=== PATIENT | male | born 1990 | race Caucasian/White ===

== ENCOUNTER 2021-07-26 10:32 | Observation (INO) | payer OTHER ==
[2021-07-26] MEDS ORDERED: SODIUM CHLORIDE 0.9% 1,000 ML IV STA (10:44)
[2021-07-26] MEDS ORDERED: ONDANSETRON 4 MG/2 ML VIAL IVP STA ×2 (10:45→13:16)
[2021-07-26 11:26] LABS: Potassium 3.9 mmol/L (3.5-5.1)
[2021-07-26 11:27] LABS: ALT 16 U/L (4-49); AST 30 U/L (17-59); African American GFR (CKD) >90 (>60 ml/min/1.73 sqM); Albumin 4.5 g/dL (3.5-5.0); Alcohol <10 mg/dL; Alkaline Phosphatase 156 U/L (38-126); Anion Gap 13 mmol/L; Blood Urea Nitrogen 12 mg/dL (9-20); Calcium 9.8 mg/dL (8.4-10.2); Carbon Dioxide 21 mmol/L (22-30); Chloride 105 mmol/L (98-107); Glucose 205 mg/dL (74-99); Magnesium 2.8 mg/dL (1.6-2.3); Non-African American GFR(CKD) >90 (>60 ml/min/1.73 sqM); Sodium 139 mmol/L (137-145); Total Bilirubin 0.3 mg/dL (0.2-1.3); Total Protein 7.6 g/dL (6.3-8.2)
[2021-07-26 11:35] LABS: Basophils % (A) 0 %; Eosinophils % (A) 0 %; HCT 39.3 % (39.0-53.0); HGB 13.3 gm/dL (13.0-17.5); Lymphocytes # (A) 0.8 k/uL (1.0-4.8); Lymphocytes % (A) 7 %; MCH 29.7 pg (25.0-35.0); MCHC 33.8 g/dL (31.0-37.0); MCV 87.8 fL (80.0-100.0); Mean Platelet Volume 6.9; Monocytes # (A) 0.4 k/uL (0-1.0); Monocytes % (A) 3 %; Neutrophils # (A) 9.9 k/uL (1.3-7.7); Neutrophils % (A) 88 %; Platelet Count 337 k/uL (150-450); RBC 4.48 m/uL (4.30-5.90); RDW 13.2 % (11.5-15.5); WBC 11.2 k/uL (3.8-10.6)
[2021-07-26 11:48] LABS: Amorphous Sediment,Urine Rare /hpf; Appearance,Urine Cloudy (Clear); Bilirubin,Urine Negative (Negative); Blood,Urine Negative (Negative); Glucose,Urine (UA) Trace (Negative); Ketones,Urine 1+ (Negative); Leukocyte Esterase,Urine Negative (Negative); Mucus,Urine Many /hpf; Nitrite,Urine Negative (Negative); Protein,Urine 2+ (Negative); RBC,Urine 15 /hpf (0-5); Urobilinogen,Urine <2.0 mg/dL (<2.0); WBC,Urine 5 /hpf (0-5)
[2021-07-26 11:52] LABS: Color,Urine Yellow
[2021-07-26 12:10] LABS: Cocaine Screen,Urine Detected (NotDetected); Opiate Screen,Urine Detected (NotDetected); Phencyclidine Screen,Urine Not Detected (NotDetected); Urn Cannabinoid Scrn Detected (NotDetected)
[2021-07-26 12:11] LABS: Amphetamine Screen,Urine Not Detected (NotDetected); Barbiturate Screen,Urine Not Detected (NotDetected); Benzodiazepines Screen,Urine Not Detected (NotDetected); Methadone Screen, Urine Detected (NotDetected); Oxycodone Screen, Urine Not Detected (NotDetected); Tricyclic Antidepressant,Urine Not Detected (NotDetected)
--- NOTE | 2021-07-26 12:22 | ED ---
Seizure HPI - General Chief Complaint: Seizure Stated Complaint: Seizure Time Seen by Provider: 07/26/21 10:34 Source: patient, EMS Mode of arrival: EMS Limitations: no limitations - History of Present Illness Initial Comments: Patient is a 31-year-old male, with history of polysubstance abuse, presenting to the emergency department via EMS from [facility] after having a witnessed 6 minute long seizure. He does admit to having history of seizures in the past from detoxing off of alcohol and other drugs. He presented to [facility] last night. Patient is currently alert and oriented 4, he does have a little bit of confusion was certain questions. He admits to feeling a little nauseous, generalized body pains but no specific area of pain. He denies any chest pain or shortness of breath, no abdominal pain. He states he takes methadone, he was given a dose early this morning. According to his med list from [facility], he is on Bactrim and Keflex, he does not know why. Patient denies any recent fevers or chills, no diarrhea or dysuria. He has no further complaints. His vital signs are stable upon arrival. - Related Data Home Medications Medication Instructions Recorded Confirmed Cephalexin [Keflex] 500 mg PO Q6H 07/26/21 07/26/21 Methadone [Dolophine] 30 mg PO DAILY 07/26/21 07/26/21 Sulfamethoxazole/Trimethoprim 1 tab PO BID 07/26/21 07/26/21 [Bactrim DS 800-160 mg] Allergies Allergy/AdvReac Type Severity Reaction Status Date / Time No Known Allergies Allergy Verified 07/26/21 11:13 Review of Systems ROS Statement: Those systems with pertinent positive or pertinent negative responses have been documented in the HPI. ROS Other: All systems not noted in ROS Statement are negative. General Exam - General Exam Comments Initial Comments: GENERAL: Patient is well-developed and well-nourished. Patient is nontoxic and in no acute distress, diaphoretic. HEAD: Atraumatic, normocephalic. No hematomas. EYES: Pupils equal round and reactive to light, extraocular movements intact, sclera anicteric, conjunctiva are normal. Eyelids were unremarkable. ENT: TMs normal, nares patent, oropharynx clear without exudates. Moist mucous membranes. NECK: Normal range of motion, supple without lymphadenopathy or JVD. He has no midline tenderness. LUNGS: Unlabored respirations. Breath sounds clear to auscultation bilaterally and equal. No wheezes rales or rhonchi. HEART: Regular rate and rhythm without murmurs, rubs or gallops. ABDOMEN: Soft, nontender, normoactive bowel sounds. No guarding, no rebound. No masses appreciated. : Deferred MUSCULOSKELETAL: Normal extremities with adequate strength and normal range of motion, no pitting or edema. No clubbing or cyanosis. NEUROLOGICAL: Patient is alert and oriented x 3. Motor and sensory are also intact. Cranial nerves II through XII grossly intact. Symmetrical smile. Normal speech, normal gait. PSYCH: Normal mood, normal affect. SKIN: Warm, Dry, normal turgor, no rashes or lesions noted. Limitations: no limitations Course Vital Signs 07/26/21 07/26/21 10:35 14:00 Temperature 99.2 F Pulse Rate 99 89 Respiratory 18 18 Rate Blood Pressure 119/61 129/76 O2 Sat by Pulse 100 100 Oximetry Medical Decision Making - Medical Decision Making Patient is a 31-year-old male with history of polysubstance abuse, presenting via EMS from [facility] after having a witnessed 6 minute long seizure. He has been at [facility] since last night, there for rehab from cocaine, fentanyl, methadone. He denies any alcohol use. He has had seizures in the past from detoxing. He is complaining of generalized body aches, some mild nausea but no further complaints today. His vitals are stable. He is in no acute distress, he is A& O4, occasional confusion however answering some questions, or takes awhile to understand the question. His labs showing a stable white count, glucose is 205 and mag is slightly high at 2.8. Urine shows 1+ ketones, 15 RBCs, and urine tox is positive for opiates, methadone, cocaine and marijuana. Alcohol is normal. Patient will be admitted for observation and neurology consult. Dr. Wang is accepting. Case discussed with Dr. Rock. - Lab Data Result diagrams: 07/26/21 11:05 07/26/21 10:52 Lab Results 07/26/21 07/26/21 07/26/21 Range/Units 10:52 11:05 11:05 WBC 11.2 H (3.8-10.6) k/uL RBC 4.48 (4.30-5.90) m/uL Hgb 13.3 (13.0-17.5) gm/dL Hct 39.3 (39.0-53.0) % MCV 87.8 (80.0-100.0) fL MCH 29.7 (25.0-35.0) pg MCHC 33.8 (31.0-37.0) g/dL RDW 13.2 (11.5-15.5) % Plt Count 337 (150-450) k/uL MPV 6.9 Neutrophils % 88 % Lymphocytes % 7 % Monocytes % 3 % Eosinophils % 0 % Basophils % 0 % Neutrophils # 9.9 H (1.3-7.7) k/uL Lymphocytes # 0.8 L (1.0-4.8) k/uL Monocytes # 0.4 (0-1.0) k/uL Eosinophils # 0.0 (0-0.7) k/uL Basophils # 0.0 (0-0.2) k/uL Sodium 139 (137-145) mmol/L Potassium 3.9 (3.5-5.1) mmol/L Chloride 105 (98-107) mmol/L Carbon Dioxide 21 L (22-30) mmol/L Anion Gap 13 mmol/L BUN 12 (9-20) mg/dL Creatinine 0.71 (0.66-1.25) mg/dL Est GFR (CKD-EPI)AfAm >90 (>60 ml/min/1.73 sqM) Est GFR (CKD-EPI)NonAf >90 (>60 ml/min/1.73 sqM) Glucose 205 H (74-99) mg/dL Calcium 9.8 (8.4-10.2) mg/dL Magnesium 2.8 H (1.6-2.3) mg/dL Total Bilirubin 0.3 (0.2-1.3) mg/dL AST 30 (17-59) U/L ALT 16 (4-49) U/L Alkaline Phosphatase 156 H (38-126) U/L Total Protein 7.6 (6.3-8.2) g/dL Albumin 4.5 (3.5-5.0) g/dL Urine Color Yellow Urine Appearance Cloudy (Clear) Urine pH 6.0 (5.0-8.0) Ur Specific [place] 1.030 (1.001-1.035) Urine Protein 2+ H (Negative) Urine Glucose (UA) Trace H (Negative) Urine Ketones 1+ H (Negative) Urine Blood Negative (Negative) Urine Nitrite Negative (Negative) Urine Bilirubin Negative (Negative) Urine Urobilinogen <2.0 (<2.0) mg/dL Ur Leukocyte Esterase Negative (Negative) Urine RBC 15 H (0-5) /hpf Urine WBC 5 (0-5) /hpf Amorphous Sediment Rare H (None) /hpf Urine Mucus Many H (None) /hpf Urine Opiates Screen Detected H (NotDetected) Ur Oxycodone Screen Not Detected (NotDetected) Urine Methadone Screen Detected H (NotDetected) Ur Propoxyphene Screen Not Detected (NotDetected) Ur Barbiturates Screen Not Detected (NotDetected) U Tricyclic Antidepress Not Detected (NotDetected) Ur Phencyclidine Scrn Not Detected (NotDetected) Ur Amphetamines Screen Not Detected (NotDetected) U Methamphetamines Scrn Not Detected (NotDetected) U Benzodiazepines Scrn Not Detected (NotDetected) Urine Cocaine Screen Detected H (NotDetected) U Marijuana (THC) Screen Detected H (NotDetected) Serum Alcohol <10 mg/dL - EKG Data EKG Comments: Normal sinus rhythm, normal ECG, no signs of acute process. Ventricular rate 94, VA interval 154, QT 360. Disposition Clinical Impression: Generalized seizure, Polysubstance abuse Disposition: ADMITTED IP TO THIS [facility] Condition: Stable Decision Date: 07/26/21 Decision Time: 13:53
[2021-07-26] MEDS ORDERED: ONDANSETRON 4 MG/2 ML VIAL IVP PRN (13:50)
[2021-07-26] MEDS ORDERED: NALOXONE 0.4 MG/ML 1 ML VIAL IV PRN (13:50)
[2021-07-26] MEDS ORDERED: IBUPROFEN 400 MG TAB PO PRN (13:50)
[2021-07-26] MEDS ORDERED: LORazepam 2 MG/ML INJ IV PRN ×2 (13:52→16:06)
[2021-07-26] MEDS: SODIUM CHLORIDE 0.9% 1,000 ML IV SCH ×2 (13:59→20:48)
[2021-07-26] MEDS: ACETAMINOPHEN TAB 325 MG TAB PO PRN (14:03)
--- NOTE | 2021-07-26 15:34 | P.CNNES ---
History of Present Illness Consult date: 07/26/21 Requesting physician: Lisa Barragan Reason for Consult: seizure, polysubstance abuse History of Present Illness: This is a 31-year-old gentleman with history of polysubstance use, previous episode of seizure due to detoxification who presented to the emergency department via EMS on 07/26/2021 from [facility] after witnessed 6 minute episode of seizure. Patient was at [facility] since last night for his histor y of polysubstance use and he is detoxing. Some of the history is obtained from medical records since patient was not a great historian. Patient did state that he uses cocaine and IV heroin use. He stated he has history of alcohol use and initially stated last drink was today than he said it was 3 days ago then later it was 3 month ago and was not consistent with answer. He states that he smokes 1 pack per day. He denies of headaches. He did acknowledge that he had history of seizure in the past due to detoxification from alcohol withdrawl and polysubstance use. Patient is getting methadone the rehab center. Per the ED note the patient the was a little bit confused to certain questions but he was alert oriented 4 per the ED, he was low but nauseous and generalized body pain. Workup in the hospital consisted of: Initial vital signs: Blood pressure of 119/61, heart rate of 99, respiratory of 18, temperature of 99.2 Fahrenheit oral and pulse ox 100% at room air. CBC with differential is white blood cell is just minimally elevated of 11.2K as seems reactive. Otherwise rest of CBC with differential is unremarkable. Chemistry panel is initial serum glucose 205 which is slightly elevated, magnesium is 2.8 is mildly elevated. Otherwise the rest of the chemistry panel is unremarkable. The calcium is 9.8, AST of 30 and ALT of 16. Sodium is 135, creatinine is 0.71 which is within normal limits. Urine drug screen is positive for cocaine, marijuana, methadone, opiates. Serum alcohol level is less than 10. Review of Systems Review of system: Is limited but the penitent positive and negative per HPI. Medications and Allergies Home Medications Medication Instructions Recorded Confirmed Type Cephalexin [Keflex] 500 mg PO Q6H 07/26/21 07/26/21 History Methadone [Dolophine] 30 mg PO DAILY 07/26/21 07/26/21 History Sulfamethoxazole/Trimethoprim 1 tab PO BID 07/26/21 07/26/21 History [Bactrim DS 800-160 mg] Allergies Allergy/AdvReac Type Severity Reaction Status Date / Time No Known Allergies Allergy Verified 07/26/21 11:13 Physical Examination - Vital Signs Vital Signs: Vital Signs Temp Pulse Resp BP Pulse Ox 07/26/21 14:00 89 18 129/76 100 07/26/21 10:35 99.2 F 99 18 119/61 100 Intake and Output 07/25/21 07/26/21 07/26/21 22:59 06:59 14:59 Other: Weight 81.647 kg GENERAL: The patient is lying in bed and is not in acute distress but seems somewhat restless. CHEST: The heart rate is regular rate rhythm. No murmurs to auscultation. No carotid bruit bilaterally. LUNG: Clear to auscultation bilaterally no wheezing noted throughout. Not labored breathing. ABDOMEN/GI: Bowel sounds present in all 4 quadrants. No tenderness to palpation throughout. INTEGUMENTARY: Has needle tulio noted in upper extremities. NEUROLOGICAL: Higher mental function: The patient is awake, seems somewhat restless. Is oriented to self. Upon asking the year he got it right by the second time and got the month correct as well. He was able to state the month but on second and third try but on first try he could not. He was able to state he was in the hospital with options. Initially he stated he was at [facility]. He is able to name objects (watch, glasses and pen). He is able to name current state we are in, [facility] and the current [place]. president. Patient is following commands. No aphasia and no neglect. Cranial nerves: The pupils are round, equal and reactive to light. Visual zaragoza are full to confrontation throughout. Extraocular movement is intact no nystagmus is noted. Facial sensation is normal to touch throughout. The facial strength is normal throughout. Hearing is normal bilaterally to hand rub. Tongue is midline and moved [id number] without any difficulty. No dysarthria is noted. Shoulder shrug is normal bilaterally. Motor: Gait is deferred. The strength is 5 over 5 throughout. Normal tone and bulk. Cerebellum: Normal finger to nose heel to joe bilaterally. Sensation: Sensation is normal to touch throughout. Reflexes (right/left): 2+ throughout. Plantars are downgoing bilaterally. Results - Laboratory Findings CBC and BMP: 07/26/21 11:05 07/26/21 10:52 Abnormal Lab Findings: Abnormal Labs 07/26/21 07/26/21 07/26/21 10:52 11:05 11:05 WBC 11.2 H Neutrophils # 9.9 H Lymphocytes # 0.8 L Carbon Dioxide 21 L Glucose 205 H Magnesium 2.8 H Alkaline Phosphatase 156 H Urine Protein 2+ H Urine Glucose (UA) Trace H Urine Ketones 1+ H Urine RBC 15 H Amorphous Sediment Rare H Urine Mucus Many H Urine Opiates Screen Detected H Urine Methadone Screen Detected H Urine Cocaine Screen Detected H U Marijuana (THC) Screen Detected H Assessment and Plan Assessment: Provoke seizure due to withdraw from detoxification from his polysubstance use (opiates, cocaine). Unsure when exactly his last alcohol drink (he was inconsistent with answer and alcohol level <10). Encephalopathy due to above. History of seizure from alcohol withdrawal as well as polysubstance use Polysubstance use (cocaine, marijuana, IV heroin) History of alcohol use Nicotine use Plan: I ordered CT head w/o. If patient continues to be altered will get a routine EEG. Will off on any antiepileptic drug for now since this is provoked seizure. I started the patient on thiamine 100 mg IV daily for now. Ordered Vitamin B12, folate levels. Q4 neuro-checks. Ordered Seizure precaution and pad Recommend CIWA protocol since unsure exactly when last alcohol use (patient is inconsistent with history) and will defer management to the primary team. Patient was counseled on polysubstance use and tobacco cessation. Will defer the rest of medical management to the primary team. The plan is discussed with the patient's nurse. Thank you for the consultation. Galdino Mccollum MD Neuro-Hospitalist Time with Patient: Greater than 30
--- NOTE | 2021-07-26 15:48 | CT ---
EXAMINATION TYPE: CT brain wo con DATE OF EXAM: 07/26/2021 COMPARISON: None INDICATION: Patient poor historian. DLP: 1142.4 mGycm, Automated exposure control for dose reduction was used. CONTRAST: None CT of the brain is performed utilizing 3 mm thick sections through the posterior fossa and 3 mm thick sections through the remaining calvarium. Study is performed within 24 hours of arrival to the hosp ital. No abnormal hyperdensity is present to suggest an acute intracranial hemorrhage. No mass lesion is evident. No acute infarcts are evident. Ventricles and sulci are appropriate for the patient age. Paranasal sinuses and mastoid air cells within the [id number] are clear. IMPRESSIONS: 1. No acute intracranial process.
--- NOTE | 2021-07-26 19:08 | XR ---
EXAMINATION TYPE: XR chest 1V portable DATE OF EXAM: 07/26/2021 COMPARISON: NONE HISTORY: Short of breath TECHNIQUE: Single view FINDINGS: Heart is normal. Lungs are clear of infiltrate. There is no heart failure. There are no hil ar masses. There are chest leads. Bony thorax is intact. IMPRESSION: No active cardiopulmonary disease. Normal heart.
[2021-07-26] MEDS: LORazepam 2 MG/ML INJ IV PRN (20:58)
[2021-07-26] MEDS: THIAMINE 100 MG/ML 2 ML VIAL IVP SCH (20:59)
--- NOTE | 2021-07-26 21:09 | HP ---
HISTORY AND PHYSICAL DATE OF SERVICE: 07/26/2021 CHIEF COMPLAINT: Seizure disorder. HISTORY OF PRESENT ILLNESS: This 31-year-old gentleman with a past medical history of multiple medical problems, including polysubstance abuse, being followed by no physician in the outpatient setting, was living in the [place] area. The patient had a history of heroin abuse and the patient was on methadone. The patient wanted to increase more of methadone. The patient was admitted to [facility] for rehab for detox last night. The patient apparently had a witnessed [id number] seizure in [facility] and the patient was taken to [facility] and admitted for further evaluation and treatment. The patient is mildly confused; otherwise able to give a sketchy history at this time. The patient is complaining of some generalized body pains. Initial evaluation, including CT scan of the brain, did not show any acute abnormality. A neurology evaluation is in progress. There is no history of any fever, rigor or chills at this time. PAST MEDICAL HISTORY: History of polysubstance abuse. MEDICATIONS PRIOR TO ADMISSION: Home medications are methadone, Bactrim and Keflex. ALLERGIES: NONE. FAMILY HISTORY: No history of heart disease or strokes in the family. SOCIAL HISTORY: History of polysubstance abuse. REVIEW OF SYSTEMS: ENT: As mentioned earlier. CARDIOVASCULAR SYSTEM: No angina, palpitations. RESPIRATORY SYSTEM: No cough, hemoptysis. GI: As mentioned earlier. : No dysuria. NERVOUS SYSTEM: As mentioned earlier. ALLERGY/IMMUNOLOGY: No asthma or hay fever. MUSCULOSKELETAL: As mentioned earlier. HEMATOLOGY/ONCOLOGY: No history of anemia. ENDOCRINE: No history of diabetes, hypothyroidism. CONSTITUTIONAL: As mentioned earlier. DERMATOLOGY: Negative. RHEUMATOLOGY: Negative. PSYCHIATRY: As mentioned earlier. PHYSICAL EXAMINATION: Patient alert and oriented x3. Pulse is 99, blood pressure 119/61, respiration 18, temperature 99.2, pulse ox 100% on room air. HEENT: Conjunctivae normal. Oral mucosa moist. NECK: No jugular venous distention. No carotid bruit. No lymph node enlargement. CARDIOVASCULAR: S1, S2 muffled. RESPIRATION: Breath sounds diminished at the bases. No rhonchi. No crackles. ABDOMEN: Soft, nontender. No mass palpable. LEGS: No edema. No swelling. NERVOUS SYSTEM: Higher functions as mentioned earlier. Moves all 4 limbs. No focal motor or sensory deficit. LYMPHATICS: No lymph node palpable in neck, axillae or groin. SKIN: No ulcer, rash, bleeding. JOINTS: No active deforming arthropathy. LAB STUDIES: WBC 11.2, hemoglobin 13.3, glucose 205, magnesium 2.8. UA noted; 15 RBCs. Drug screen is positive for opiates, methadone, cocaine and marijuana. ASSESSMENT: 1. Acute seizure disorder, possibly from withdrawal of multiple drugs. 2. Polysubstance abuse. 3. Increased white count. 4. Change in mental status, acute toxic encephalopathy. 5. Elevated random glucose. 6. Possible history of EtOH. 7. FULL CODE. RECOMMENDATIONS AND DISCUSSION: In this 31-year-old gentleman who presented with multiple complex medical issues, we will monitor the patient closely, continue the current medications, continue symptomatic treatment. Use Ativan on a p.r.n. basis. There is no clear-cut history of alcohol, but alcohol withdrawal seizure is a possibility. Will supplement vitamins. Closely follow with Neurology. Hold off antiseizure medications at this time. Prognosis is guarded because of multiple complex medical issues. Further recommendations to follow. Discussed with the patient. DVT prophylaxis. See orders for further details. MMODL / IJN: [id number] /
[2021-07-27] MEDS: LORazepam 2 MG/ML INJ IV PRN ×5 (00:51→20:56)
[2021-07-27] MEDS: ACETAMINOPHEN TAB 325 MG TAB PO PRN (02:24)
[2021-07-27] MEDS: PANTOPRAZOLE 40 MG/10 ML VIAL IV SCH (08:09)
[2021-07-27] MEDS: THIAMINE 100 MG/ML 2 ML VIAL IVP SCH (10:43)
[2021-07-27 12:08] LABS: Basophils # (A) 0.03 X 10*3/uL (0.00-0.10); Basophils % (A) 0.4 %; Eosinophils # (A) 0 X 10*3/uL (0.04-0.35); Eosinophils % (A) 0 %; HCT 37.5 % (39.6-50.0); HGB 12.5 g/dL (13.0-17.0); Lymphocytes # (A) 1.74 X 10*3/uL (0.90-5.00); Lymphocytes % (A) 22.9 %; MCH 29.3 pg (27.0-32.0); MCHC 33.3 g/dL (32.0-37.0); MCV 87.8 fL (80.0-97.0); Monocytes # (A) 0.52 X 10*3/uL (0.20-1.00); Monocytes % (A) 6.9 %; Neutrophils # (A) 5.28 X 10*3/uL (1.80-7.70); Neutrophils % (A) 69.5 %; Platelet Count 281 X 10*3/uL (140-440); RBC 4.27 X 10*6/uL (4.40-5.60); RDW 12.9 % (11.5-14.5); WBC 7.59 X 10*3/uL (4.50-10.00)
[2021-07-27] MEDS: FOLIC ACID 1 MG TAB PO SCH (13:12)
[2021-07-27] MEDS: MULTIVITAMINS, THERA 1 EACH TAB PO SCH (13:12)
--- NOTE | 2021-07-27 13:42 | P.PN ---
Subjective Progress Note Date: 07/27/21 Patient seen at bedside and per the patient nurse no further seizure activity. The patient still seems to be somewhat confused. According to patient he was on benzos of prior gout going to the [facility] for rehab for the self detoxification and he stated that that he was taken off of his benzos. Regarding all call he stated that the it's been sometime that he hasn't drink alcohol but again he could not give me a timeframe. Objective - Vital Signs Vital signs: Vital Signs Temp 98.7 F 07/27/21 07:32 Pulse 77 07/27/21 07:32 Resp 18 07/27/21 07:32 BP 126/71 07/27/21 07:32 Pulse Ox 97 07/27/21 07:32 Intake & Output 07/26/21 07/27/21 07/27/21 18:59 06:59 18:59 Weight 81.647 kg 81.647 kg Other: Voiding Method Toilet Toilet # Voids 3 # Bowel Movements 0 1 - Exam GENERAL: The patient is lying in bed and is not in acute distress but seems somewhat restless. NEUROLOGICAL: Higher mental function: The patient is awake, seems somewhat restless. Is oriented to self, place and time. He seems more responsive today but still s eems mildly confused upon talking. . Upon asking the year he got it right by the second time and got the month correct as well He is able to name objects (watch, glasses and pen). He is able to name current state we are in, [facility] and the current U.[place]. president. Patient is following commands. No aphasia and no neglect. Cranial nerves: The pupils are round, equal and reactive to light. Visual zaragoza are full to confrontation throughout. Extraocular movement is intact no nystagmus is noted. Facial sensation is normal to touch throughout. The facial strength is normal throughout. Hearing is normal bilaterally to hand rub. Tongue is midline and moved [id number] without any difficulty. No dysarthria is noted. Shoulder shrug is normal bilaterally. Motor: Gait is deferred. The strength is 5 over 5 throughout. Normal tone and bulk. Cerebellum: Normal finger to nose heel to joe bilaterally. Sensation: Sensation is normal to touch throughout. Reflexes (right/left): 2+ throughout. Plantars are downgoing bilaterally. WORK-UP: Red blood cell folate is 713. CT of the head is reported as no acute intracranial process. - Labs CBC & Chem 7: 07/27/21 07:36 07/27/21 07:36 Labs: Abnormal Lab Results - Last 24 Hours (Table) 07/27/21 Range/Units 07:36 RBC 4.27 L (4.40-5.60) X 10*6/uL Hgb 12.5 L (13.0-17.0) g/dL Hct 37.5 L (39.6-50.0) % Eosinophils # 0 L (0.04-0.35) X 10*3/uL Assessment and Plan Assessment: * Provoke seizure due to withdraw from detoxification from his polysubstance use (opiates, cocaine). Unsure when exactly his last alcohol drink (he was inconsistent with answer and alcohol level <10). Per patient he was on Bezo prior to going to [facility] and was taken off it for detoxification * Encephalopathy due to above--some improvement. * History of seizure from alcohol withdrawal as well as polysubstance use * Polysubstance use (cocaine, marijuana, IV heroin) * History of alcohol use * Nicotine use Plan: Ordered routine EEG. Will off on any antiepileptic drug for now since this is provoked seizure. Continue thiamine 100 mg IV daily for now and in two day switch to PO. Pending Vitamin B12 level. If low recommend starting the patient on Vitamin B12 1000mcg daily. Q4 neuro-checks. Ordered Seizure precaution and pad On CIWA protocol since unsure exactly when last alcohol use (patient is inconsistent with history) and will defer management to the primary team. Patient was counseled on polysubstance use and tobacco cessation. Will defer the rest of medical management to the primary team. The plan is discussed with the patient's nurse. UPDATE: EEG (preliminary report): This is a normal study. There are no focal slowing, epileptiform discharges or seizure on the EEG. There is no further neurological work-up. Neurology will sign off. If patient has any further seizure please contact neurology team. Galdino Mccollum MD Neuro-Hospitalist Time with Patient: Less than 30
[2021-07-27 13:46] LABS: African American GFR (CKD) 132.4 (60.0-200.0); Albumin 4.3 g/dL (3.80-4.90); Albumin/Globulin Ratio 1.65 (1.60-3.17); Anion Gap 8.8 mmol/L (4.00-12.00); Calcium 9.3 mg/dL (8.7-10.3); Carbon Dioxide 21.2 mmol/L (21.6-31.8); Globulin 2.6 g/dL (1.6-3.3); Non-African American GFR(CKD) 114.2 (60.0-200.0); Potassium 4.1 mmol/L (3.5-5.5); Total Bilirubin 0.5 mg/dL (0.3-1.2); Total Protein 6.9 g/dL (6.2-8.2)
--- NOTE | 2021-07-27 13:52 | EEG ---
ELECTROENCEPHALOGRAM REPORT DATE OF SERVICE: 07/27/2021. CLINICAL HISTORY: This is a 31 -year-old gentleman with a history of polysubstance use, who presented to the emergency department because of an episode of a seizure. The video EEG is obtained to evaluate for seizure epileptiform activity. RELEVANT MEDICATION: The patient is on Ativan. EEG TYPE: A routine 21 channel EEG is performed with video using the 10/20 electrode placement system. DESCRIPTION: Wakefulness is only obtained. During wakefulness, there is a posterior dominant rhythm of low to moderate voltage, well modulated, well sustained of 8.5-9 hertz activity. There is no physiological stage 2 sleep architecture seen. There is no focal slowing seen. There is excessive beta activity seen throughout the study. Interictal and ictal is none. ACTIVATION PROCEDURE: Photic stimulation, hyperventilation is not performed. CLINICAL INTERPRETATION: This is a normal routine EEG. There are no focal slowing, epileptiform discharges or seizure on the EEG. The excessive fast activity is due to medication effect (Ativan). Clinical correlation is recommended. MMMARYANA / DESI: [id number] / [id number]
[2021-07-27 13:54] VITALS: BMI 24.4
[2021-07-27] MEDS ORDERED: METHADONE 10 MG TAB PO SCH (14:00)
[2021-07-27] MEDS: METHADONE 10 MG TAB PO SCH (15:39)
[2021-07-27] MEDS: CEPHALEXIN 500 MG CAP PO SCH ×2 (15:40→20:55)
[2021-07-27] MEDS: SODIUM CHLORIDE 0.9% 1,000 ML IV SCH ×2 (15:40→20:55)
--- NOTE | 2021-07-27 16:24 | PN ---
PROGRESS NOTE DATE OF SERVICE: 07/27/2021. This 31-year-old gentleman was admitted with seizure disorder, possibly withdrawal seizures. No chest pain. No palpitations. No fever. EEG was recommended by Neurology, which showed no abnormal findings. PHYSICAL EXAMINATION: Alert and oriented x2. Pulse 62, blood pressure 127/77, respiration 18, temperature 98.7, pulse ox % on room air. HEENT: Conjunctivae normal. NECK: No jugular venous distention. CARDIOVASCULAR: S1, S2 muffled. RESPIRATION: Breath sounds diminished at the bases. No rhonchi. No crackles. ABDOMEN: Soft. NERVOUS SYSTEM: Mild diffuse weakness. LAB STUDIES: WBC ntd_hemoglobin is 12.5, sodium is 140, potassium 4.1. UA noted. Drug screen is positive cocaine and THC. Alcohol less than 10. ASSESSMENT: 1. Acute seizure disorder, possibly from withdrawal of multiple drugs. 2. Polysubstance substance abuse history. 3. Increased white count. 4. Change in mental status and acute toxic encephalopathy. 5. Elevated random glucose. 6. Possible history of ETOH. 7. FULL CODE. RECOMMENDATIONS AND DISCUSSION: I recommend to continue current medications, continue with symptomatic treatment. Otherwise at this time we will continue to monitor with Neurology. Supportive symptomatic treatment. Guarded prognosis. Further recommendations to follow. MMODL / IJN: [id number] / MADI
[2021-07-27 18:40] LABS: Folate, Serum 6.1 ng/mL
[2021-07-27] MEDS: SULFAMETHOX-TMP 800-160MG 1 EACH TAB PO SCH (20:56)
[2021-07-28] MEDS: ACETAMINOPHEN TAB 325 MG TAB PO PRN (01:17)
[2021-07-28 01:28] VITALS: TEMP 98.6
[2021-07-28] MEDS: CEPHALEXIN 500 MG CAP PO SCH ×2 (04:24→09:17)
[2021-07-28 07:29] VITALS: BP 110/63; PULSE 51; RESP 16
[2021-07-28] MEDS ORDERED: THIAMINE 100 MG TAB PO SCH (09:00)
[2021-07-28] MEDS: SULFAMETHOX-TMP 800-160MG 1 EACH TAB PO SCH (09:17)
[2021-07-28] MEDS: METHADONE 10 MG TAB PO SCH (09:17)
[2021-07-28] MEDS: FOLIC ACID 1 MG TAB PO SCH (09:18)
[2021-07-28] MEDS: MULTIVITAMINS, THERA 1 EACH TAB PO SCH (09:18)
[2021-07-28] MEDS: PANTOPRAZOLE 40 MG/10 ML VIAL IV SCH (09:18)
--- NOTE | 2021-07-28 15:59 | P.DS ---
Providers Date of admission: 07/26/21 13:50 Expected date of discharge: 07/28/21 Attending physician: Suzan Wang Consults: 07/26/21 13:51 Consult Physician Urgent Consulting Provider: Galdino Mccollum Consult Reason/Comments: Seizure, polysubstance abuse Do you want consulting provider notified?: Yes Primary care physician: Stated None Hospital Course: Final diagnosis Acute seizure disorder, possibly from withdrawal of multiple drugs Polysubstance substance abuse history Increased white count change in mental status and acute toxic encephalopathy Elevated random glucose Possible history of EtOH Full code Discharge disposition Patient is being discharged in a stable condition with guarded prognosis to [facility] for continued alcohol rehab. Patient will follow-up with his primary care provider in the outpatient setting upon discharge. Total time taken is greater than 35 minutes. Hospital course This is a 31-year-old male who was recently admitted with seizure disorder possibly withdrawal seizures and being closely monitored. Patient was maintained on CIWA protocol and home medications have been resumed. Patient was taking antibiotics outpatient and recommend continue to complete the course. Patient was seen and evaluated by neurology and underwent an EEG showing a normal EEG with no epileptiform discharges or seizures noted on the study. Patient was at [facility] rehab and will be returning there. Instructed the patient to follow-up with his primary care provider upon discharge. Continue to avoid alcohol intake. Currently no reports of chest pain, shortness of breath, or palpitations. Patient is afebrile. No reports of nausea or vomiting and patient is tolerating diet. Patient will be going to [facility] today. On exam vital signs are stable. Cardio S1, S2 are muffled. Respiratory system shows diminished breath sounds at the bases with no wheezing or rhonchi noted. Abdomen is soft and nontender. Nervous system shows no focal deficits. Please refer to medication reconciliation sheet for a list of medications. Patient Condition at Discharge: Stable Plan - Discharge Summary Discharge Rx Participant: Yes New Discharge Prescriptions: New Folic Acid 1 mg PO DAILY #30 tablet Thiamine [Vitamin B-1] 100 mg PO DAILY #30 tablet Ondansetron Odt [Zofran Odt] 4 mg PO Q8HR PRN #12 tab PRN Reason: Nausea Ibuprofen [Motrin] 400 mg PO Q6HR PRN #10 tab PRN Reason: Pain Multivitamins, Thera [Multivitamin] 1 tab PO DAILY #30 tablet Continue Methadone [Dolophine] 30 mg PO DAILY Sulfamethoxazole/Trimethoprim [Bactrim DS 800-160 mg] 1 tab PO BID Cephalexin [Keflex] 500 mg PO Q6H Discharge Medication List Cephalexin [Keflex] 500 mg PO Q6H 07/26/21 [History] Methadone [Dolophine] 30 mg PO DAILY 07/26/21 [History] Sulfamethoxazole/Trimethoprim [Bactrim DS 800-160 mg] 1 tab PO BID 07/26/21 [History] Folic Acid 1 mg PO DAILY #30 tablet 07/28/21 [Rx] Ibuprofen [Motrin] 400 mg PO Q6HR PRN #10 tab 07/28/21 [Rx] Multivitamins, Thera [Multivitamin] 1 tab PO DAILY #30 tablet 07/28/21 [Rx] Ondansetron Odt [Zofran Odt] 4 mg PO Q8HR PRN #12 tab 07/28/21 [Rx] Thiamine [Vitamin B-1] 100 mg PO DAILY #30 tablet 07/28/21 [Rx] Patient Instructions/Handouts: Seizure/Epilepsy Discharge Instructions & Follow-Up Activity/Diet/Wound Care/Special Instructions: Patient is being discharged and going back to [facility] for continued rehab Activity as tolerated Continue with antibiotic regimen that you're previously on May use Zofran as needed Continue current diet Follow-up with primary care provider on discharge next line Discharge Disposition: OTHER INSTITUTION NOT DEFINED
== END 2021-07-28 14:02 ==
LOC: EC 10:32 → 4SSUR 13:50 → INTOOBSV 13:50 → 4SSUR 15:56 → UNDODISIN 07-28 14:02
PROVIDERS: ADMIT Hospitalist; ATTEND Hospitalist
DX: G40.909 Epilepsy, unspecified, not intractable, without status epilepticus (principal); G92 Toxic encephalopathy; F11.20 Opioid dependence, uncomplicated; F14.10 Cocaine abuse, uncomplicated; F12.10 Cannabis abuse, uncomplicated; F10.10 Alcohol abuse, uncomplicated; D72.829 Elevated white blood cell count, unspecified; R73.9 Hyperglycemia, unspecified; F17.210 Nicotine dependence, cigarettes, uncomplicated; Z71.51 Drug abuse counseling and surveillance of drug abuser; Z71.6 Tobacco abuse counseling
CPT/HCPCS: 96361 ×4; 96375 ×3; 96376 ×4; 96374; 99285; 36415; 95816; 93005; 82747; 80053 ×2; 82607; 82746; 83735 ×2; 85025 ×2; 81001; 80306; 71045; 70450; G0378 ×3; G0480; J2060 ×2; J3411 ×2; J2405 ×2; S0109 ×2; C9113 ×2; 80320

== ENCOUNTER 2021-07-30 18:50 | Emergency (ER) | payer OTHER ==
[2021-07-30] MEDS ORDERED: SODIUM CHLORIDE 0.9% 1,000 ML IV STA (19:03)
[2021-07-30 19:04] LABS: Glucose,Whole Blood 96 mg/dL (75-99)
[2021-07-30 19:22] LABS: Basophils # (A) 0.1 k/uL (0-0.2); Basophils % (A) 1 %; Eosinophils # (A) 0.1 k/uL (0-0.7); Eosinophils % (A) 1 %; HCT 41.3 % (39.0-53.0); HGB 14.2 gm/dL (13.0-17.5); Lymphocytes # (A) 2.3 k/uL (1.0-4.8); Lymphocytes % (A) 22 %; MCH 30.2 pg (25.0-35.0); MCHC 34.4 g/dL (31.0-37.0); MCV 87.9 fL (80.0-100.0); Mean Platelet Volume 7.8; Monocytes # (A) 0.6 k/uL (0-1.0); Monocytes % (A) 6 %; Neutrophils # (A) 6.9 k/uL (1.3-7.7); Neutrophils % (A) 66 %; Platelet Count 345 k/uL (150-450); RDW 13.4 % (11.5-15.5); WBC 10.4 k/uL (3.8-10.6)
[2021-07-30 19:30] VITALS: BP 135/77; PULSE 68; RESP 17
--- NOTE | 2021-07-30 19:45 | ED ---
Seizure HPI - General Chief Complaint: Seizure Stated Complaint: seizure Time Seen by Provider: 07/30/21 18:55 Source: EMS Mode of arrival: EMS Limitations: no limitations - History of Present Illness Initial Comments: Jeovanny is a 31-year-old male with a history of polysubstance abuse who was admitted to this hospital 4 days ago for seizure activity which was believed to be due to withdrawal. Patient received Ativan in the hospital, had an EEG that was negative and was discharged back to his rehab facility. Apparently the patient again today had seizure-like activity. EMS reports the patient was hemodynamically stable but appeared to be postictal upon their arrival. On initial arrival to the hospital patient is somewhat groggy, he answers que stions and then stares off into space. He is able to give complex answers including the phone number of his mother and grandmother but then will ask who are calling. There is no consistency to his apparent confusion. I advised the patient that he does not seem to be having seizure disorder that we can start him on seizure medications and he can return to [facility] patient became much more awake and alert he states he is not going back to [facility] he doesn't like it there it is dirty he would like to go home. - Related Data Home Medications Medication Instructions Recorded Confirmed Cephalexin [Keflex] 500 mg PO Q6H 07/26/21 07/30/21 Sulfamethoxazole/Trimethoprim 1 tab PO BID 07/26/21 07/30/21 [Bactrim DS 800-160 mg] Acetaminophen [Tylenol 8 Hour] 650 mg PO Q4H PRN MDD 1950 mg 07/30/21 07/30/21 Ibuprofen [Motrin Ib] 600 mg PO Q8H PRN 07/30/21 07/30/21 Methadone HCl [Methadone Intensol] 30 mg PO DAILY 07/30/21 07/30/21 Mirtazapine [Remeron] 15 mg PO HS 07/30/21 07/30/21 Previous Rx's Medication Instructions Recorded Multivitamins, Thera [Multivitamin] 1 tab PO DAILY #30 tablet 07/28/21 Thiamine [Vitamin B-1] 100 mg PO DAILY #30 tablet 07/28/21 Allergies Allergy/AdvReac Type Severity Reaction Status Date / Time No Known Allergies Allergy Verified 07/30/21 19:09 Review of Systems ROS Statement: Those systems with pertinent positive or pertinent negative responses have been documented in the HPI. ROS Other: All systems not noted in ROS Statement are negative. Past Medical History Past Medical History: No Reported History Additional Past Medical History / Comment(s): hx of seizures r/t withdrawal History of Any Multi-Drug Resistant Organisms: None Reported Past Surgical History: No Surgical Hx Reported Past Anesthesia/Blood Transfusion Reactions: No Reported Reaction Past Psychological History: ADD/ADHD, Depression Smoking Status: Current some day smoker Past Alcohol Use History: Daily Past Drug Use History: Heroin, Marijuana, Methamphetamine - Past Family History Mother Additional Family Medical History / Comment(s): bipolar disorder General Exam - General Exam Comments Initial Comments: Physical Exam GENERAL: Patient is well-developed and well-nourished. Patient is nontoxic and well-hydrated and is in no distress. HENT: Normocephalic, Atraumatic. No oral trauma or evidence of tongue biting EYES: PERRL, EOMI Pupils dilated 5mm bilaterally PULMONARY: Unlabored respirations. No audible rales rhonchi or wheezing was noted. CARDIOVASCULAR: There is a regular rate and rhythm without any murmurs gallops or rubs. ABDOMEN: Soft and nontender with normal bowel sounds. SKIN: Skin is clear with no lesions or rashes and otherwise unremarkable. : Deferred NEUROLOGIC: Patient is alert and oriented x3. Moving all extremities spontaneously MUSCULOSKELETAL: Normal extremities with adequate strength and full range of motion. No lower extremity swelling or edema. No calf tenderness. PSYCHIATRIC: Mumbled speech, minimally interactive with exam Limitations: no limitations Course Vital Signs 07/30/21 07/30/21 07/30/21 18:51 19:29 20:18 Temperature 100.0 F H 99 F Pulse Rate 69 68 Respiratory 18 17 Rate Blood Pressure 130/75 135/77 O2 Sat by Pulse 98 100 Oximetry Medical Decision Making - Medical Decision Making Patient was seen and evaluated, patient was having some staring spells and apparently had some irregular shaking [facility] he is hemodynamically stable, had no loss of bowel or bladder continence no tongue biting has no seizure disorder had a normal EEG earlier this week. Patient's labs are unremarkable. Patient would stare off into space and ignore questions and then respond in a de layed manner but responds completely appropriately. I advised the patient I don't feel there is any need for readmission to the hospital as he had a thorough workup already this week at that time patient became much more awake alert he was able to provide his home phone number is mother's phone number his grandmother's phone number. Patient adamant that he is not going back to rehab states that he doesn't like it [facility] states that he would like to be discharged home. After patient made multiple attempts to contact family he was unsuccessful decision was made that he would go back to [facility] to obtain his belongings and that would figure out transfer home. Patient was discharged when the [facility] transport and arrived. - Lab Data Result diagrams: 07/30/21 19:14 07/30/21 19:14 Lab Results 07/30/21 07/30/21 07/30/21 Range/Units 19:02 19:14 19:14 WBC 10.4 (3.8-10.6) k/uL RBC 4.70 (4.30-5.90) m/uL Hgb 14.2 (13.0-17.5) gm/dL Hct 41.3 (39.0-53.0) % MCV 87.9 (80.0-100.0) fL MCH 30.2 (25.0-35.0) pg MCHC 34.4 (31.0-37.0) g/dL RDW 13.4 (11.5-15.5) % Plt Count 345 (150-450) k/uL MPV 7.8 Neutrophils % 66 % Lymphocytes % 22 % Monocytes % 6 % Eosinophils % 1 % Basophils % 1 % Neutrophils # 6.9 (1.3-7.7) k/uL Lymphocytes # 2.3 (1.0-4.8) k/uL Monocytes # 0.6 (0-1.0) k/uL Eosinophils # 0.1 (0-0.7) k/uL Basophils # 0.1 (0-0.2) k/uL Sodium 138 (137-145) mmol/L Potassium 4.7 (3.5-5.1) mmol/L Chloride 107 (98-107) mmol/L Carbon Dioxide 20 L (22-30) mmol/L Anion Gap 11 mmol/L BUN 12 (9-20) mg/dL Creatinine 0.84 (0.66-1.25) mg/dL Est GFR (CKD-EPI)AfAm >90 (>60 ml/min/1.73 sqM) Est GFR (CKD-EPI)NonAf >90 (>60 ml/min/1.73 sqM) Glucose 122 H (74-99) mg/dL POC Glucose (mg/dL) 96 (75-99) mg/dL POC Glu [employer] ID Mike Benítez Calcium 10.0 (8.4-10.2) mg/dL Total Bilirubin 0.6 (0.2-1.3) mg/dL AST 34 (17-59) U/L ALT 12 (4-49) U/L Alkaline Phosphatase 139 H (38-126) U/L Total Protein 8.4 H (6.3-8.2) g/dL Albumin 4.8 (3.5-5.0) g/dL Serum Alcohol <10 mg/dL Disposition Clinical Impression: Polysubstance abuse Disposition: HOME SELF-CARE Condition: Stable Instructions (If sedation given, give patient instructions): Recurrent Seizures in Adults (ED) Is patient prescribed a controlled substance at d/c from ED?: No Referrals: None,Stated [Primary Care Provider] - 1-2 days
[2021-07-30 19:51] LABS: ALT 12 U/L (4-49); African American GFR (CKD) >90 (>60 ml/min/1.73 sqM); Alcohol <10 mg/dL; Anion Gap 11 mmol/L; Blood Urea Nitrogen 12 mg/dL (9-20); Carbon Dioxide 20 mmol/L (22-30); Chloride 107 mmol/L (98-107); Glucose 122 mg/dL (74-99); Non-African American GFR(CKD) >90 (>60 ml/min/1.73 sqM); Sodium 138 mmol/L (137-145); Total Bilirubin 0.6 mg/dL (0.2-1.3)
[2021-07-30 20:03] LABS: Potassium 4.7 mmol/L (3.5-5.1); Total Protein 8.4 g/dL (6.3-8.2)
[2021-07-30 20:04] LABS: AST 34 U/L (17-59); Albumin 4.8 g/dL (3.5-5.0); Alkaline Phosphatase 139 U/L (38-126)
[2021-07-30 20:18] VITALS: TEMP 99
== END 2021-07-30 21:35 | disposition home or self-care (01) ==
LOC: EC 18:50
DX: F19.10 Other psychoactive substance abuse, uncomplicated (principal); R56.9 Unspecified convulsions; F17.200 Nicotine dependence, unspecified, uncomplicated
CPT/HCPCS: 36415; 93005; 80053; 85025; 99285; 96360; G0480; 80320